=== PATIENT | male | born 1980 | race Caucasian/White ===

== ENCOUNTER 2020-10-21 20:24 | Emergency (ER) | payer OTHER ==
--- NOTE | 2020-10-21 20:28 | ED Physician Documentation ---
PD HPI ALTERED MENTAL STATUS - Stated complaint Stated Complaint: ETOH - History obtained from History obtained from: Patient - Additional information Additional information: 40-year-old gentleman presents by ambulance for alcohol intoxication. Reportedly [place] camp[place] and had [place] drinks. He was found passed out. There was no injury or evidence of trauma. He has no specific complaints. He is alert and oriented to person and place, mediocre for time and events. Review of Systems Unable to obtain: Intoxicated PD PAST MEDICAL HISTORY - Allergies Allergies/Adverse Reactions: Allergies Allergy/AdvReac Type Severity Reaction Status Date / Time No Known Drug Allergies Allergy Verified 10/21/20 21:14 PD ED PE NORMAL - Vitals Vital signs reviewed: Yes - General General: No acute distress, Well developed/nourished, Other (Slow slurred speech, bloodshot eyes) - HEENT HEENT: PERRL - Neck Neck: Supple, no meningeal sign, No bony TTP - Cardiac Cardiac: RRR, No murmur - Respiratory Respiratory: No respiratory distress, Clear bilaterally - Abdomen Abdomen: Normal bowel sounds, Soft, Non tender - Back Back: No CVA TTP, No spinal TTP - Derm Derm: Normal color, Warm and dry - Extremities Extremities: No edema, No calf tenderness / cord - Neuro Neuro: No motor deficit, No sensory deficit, Normal speech Results - Vitals Vitals: Vital Signs - 24 hr 10/21/20 20:29 Temperature 36.8 C Heart Rate 120 H Respiratory 18 Rate Blood Pressure 136/106 H O2 Saturation 96 Oxygen O2 Source Room air PD MEDICAL DECISION MAKING - ED course ED course: 40-year-old gentleman presents by ambulance for alcohol intoxication. There is no evidence of trauma or other ongoing acute medical issue. We will observe him in the emergency department while he chava up. 40-year-old gentleman presents with alcohol intoxication without evidence of trauma or other worrisome findings. The senior product development manager of the campground where he is staying is willing to come pick him up and watch him. Departure - Departure Disposition: 01 Home, Self Care Clinical Impression: Alcohol intoxication Qualifiers: Complication of substance-induced condition: with delirium Qualified Code(s): F10.921 - Alcohol use, unspecified with intoxication delirium Condition: Good Record reviewed to determine appropriate education?: Yes Instructions: ED Alcohol Intoxication Comments: Call your doctor to arrange a follow-up appointment, make the next available appointment. In the interim, return anytime if worse or if new symptoms develop.
--- OUTSIDE RECORDS SUMMARY | 2020-10-21 21:06 | EXTERNAL MEDICAL SUMMARY RPT | Continuity of Care Document ---
:1980 Demographics Phone Unavailable Preferred Language Citizen Of [place] Marital Status Unknown Pentec[employer]ism Affiliation Unknown Race Unknown Ethnic Group Unknown Author Organization [facility] Address [address] [place] [address] Phone Care Team Providers Name Role Phone Primo Unavailable Unavailable Procedures date description facility 20200803 [facility] Vital Signs date measurement value source 20200803 weight_standard 72.58 lb 20200803 weight_metric 32.92 kg 20200803 temperature_standard 96.9 F 20200803 temperature_metric 36.06 C 20200803 respiration_rate 23 /min 20200803 heart_rate 113 /min 20200803 BP_systolic 148 mm[Hg] 20200803 BP_diastolic 82 mm[Hg]
[2020-10-21 22:15] VITALS: BP 157/109
== END 2020-10-21 22:23 | disposition home or self-care (01) ==
LOC: EDUNIT# → ED 20:24
DX: F10.921 Alcohol use, unspecified with intoxication delirium (principal)
CPT/HCPCS: 99281; 99283